=== PATIENT | female | born 2005 | race Caucasian/White ===

== ENCOUNTER 2023-11-09 17:17 | Emergency (ER) | payer SELFPAY ==
[2023-11-09 17:22] VITALS: BP 114/66; PULSE 92; RESP 18; TEMP 98.2; BMI 21.2
[2023-11-09] MEDS ORDERED: ERYTHROMYCIN 0.5% OPHTHALMIC OINTMENT 3.5 GM TUBE ONE (18:05)
[2023-11-09] MEDS ORDERED: FLUORESCEIN NA 1 EA STRIP ONE (18:05)
[2023-11-09] MEDS: FLUORESCEIN NA 1 EA STRIP OU ONE (18:11)
[2023-11-09] MEDS: ERYTHROMYCIN 0.5% OPHTHALMIC OINTMENT 3.5 GM TUBE OD ONE ×2 (18:13)
== END 2023-11-09 18:35 | disposition home or self-care (01) ==
LOC: JERFT 17:17 → JER 17:17 → JERFT 18:35
DX: S05.01XA Injury of conjunctiva and corneal abrasion without foreign body, right eye, initial encounter (principal); T15.91XA Foreign body on external eye, part unspecified, right eye, initial encounter; X58.XXXA Exposure to other specified factors, initial encounter; Y93.01 Activity, walking, marching and hiking; Y92.59 Other trade areas as the place of occurrence of the external cause
CPT/HCPCS: 99283-25